=== PATIENT | female | born 1955 | race Caucasian/White ===

== ENCOUNTER 2020-11-14 01:17 | Day surgery (SDC) | payer OTHER, SELFPAY ==
[2020-10-31 13:05] VITALS: BMI 29.2
[2020-11-14 06:48] VITALS: BP 141/73; PULSE 86; RESP 16; TEMP 35.9; O2SAT 100
[2020-11-14] MEDS: LACTATED RINGERS 1,000 ML 150 ML IV CONT (06:57)
--- NOTE | 2020-11-14 07:29 | P.PNAN_ITS ---
Anes - Initial Pre Proc Eval Procedure: Operation Date: 11/14/20 08:15 Proposed Procedures p Esophagogastroduodenoscopy & Screening Colonoscopy - Scott Torrez MD Date/Time: 11/14/20 07:29 Surgeon: Scott Lynch MD Pre Op Diagnosis: GERD, hx of colon polyps Patient Data Age: 65 Gender: F Height: 1.57 m Weight: 72.1 kg Last Vital Signs Temp 96.7 F L 11/14/20 06:48 Pulse 86 11/14/20 06:48 Resp 16 11/14/20 06:48 BP 141/73 H 11/14/20 06:48 Pulse Ox 100 11/14/20 06:48 Allergies Allergy/AdvReac Type Severity Reaction Status Date / Time No Known Allergies Allergy Verified 11/14/20 06:45 Home Medications Medication Instructions Recorded Confirmed Type albuterol sulfate 90 mcg/actuation 1 puff INHALATION Q4H PRN 04/06/20 11/14/20 History aerosol inhaler estradiol 0.1 mg/24 hr semiweekly 1 patch TRANSDERMAL 2XW 04/06/20 11/14/20 History transdermal patch fluticasone 100 mcg-salmeterol 50 1 inh INHALATION Q12H 04/06/20 11/14/20 History mcg/dose blistr powdr for inhalation levocetirizine 5 mg tablet 5 mg PO DAILY 04/06/20 11/14/20 History melatonin 5 mg capsule 5 mg PO DAILY cap 04/06/20 11/14/20 History montelukast 10 mg tablet 10 mg PO DAILY 04/06/20 11/14/20 History olopatadine 0.1 % eye drops 1 drp OPHTHALMIC (EYE) BID 04/06/20 11/14/20 History esomeprazole magnesium 40 mg 40 mg PO DAILY 30 Days #30 cap 10/05/20 11/14/20 Rx capsule,delayed release famotidine 20 mg tablet 20 mg PO DAILY 10/05/20 11/14/20 History Patient hx anesthesia problems: none Family hx anesthesia problems: none PMFSH Past Medical History Medical History Abdominal pain Bloating Screen for colon cancer Social History Social History (Updated 10/05/20 @ 09:58 by BARAK Washington Smoking status: Never smoker Alcohol intake: never Substance use: never Substance use type: does not use Living arrangements: with family Gender identity (if verbalized by the patient): Female Anes - Eval Final PreProcedure Day of Procedure 11/14/20 07:29 Patient weight: overweight Heart: regular rate and rhythm Lungs: clear to auscultation Airway: Mallampati scale class II Neurological: alert and oriented Last oral intake: >/= 8 hours ASA classification: II Emergent: no Anesthetic plan: proceed Anesthesia type and monitoring: general GIVS and standard monitoring Informed Consent: The patient's anesthetic plan and its attendant risks and benefits were discussed with the patient/family/POA. Questions were solicited and answers provided to the satisfaction of the patient/family/POA.
--- NOTE | 2020-11-14 08:27 | PM.HPGS ---
History of Present Illness History of Present Illness Consent: Risks, benefits, and alternatives have been discussed and questions answered. Patient agrees to proceed with procedure. Chief complaint: GERD, hx of colon polyps Narrative: Nicole Ramirez is a 65 year old female with epigastric pain that is resolved after using nexium but now experiencing belching and bloating after eating. Also she is due to have another colonoscopy Review of Systems Constitutional: Constitutional: Denies headache(s) and Denies weakness Eyes: Eyes: Denies blurry vision ENT: Reports Normal hearing present, Denies headache(s) and Denies neck pain Cardiovascular: Cardiovascular: Denies chest pain and Denies dyspnea Respiratory: Respiratory: Denies dyspnea Gastrointestinal: Gastrointestinal: Reports no additional gastrointestinal complaints Genitourinary: Genitourinary: Denies dysuria Musculoskeletal: Musculoskeletal: Denies neck pain Integumentary/Breasts: Skin/Breast: Denies dry skin Neurologic: Reports Normal hearing present, Denies headache(s) and Denies weakness Psychiatric: Psychiatric: Denies anxiety Endocrine: Endocrine: Denies change in body appearance Hematologic/Lymphatic: Hematologic/Lymphatic: Denies easy bleeding Allergic/Immunologic: Allergic/Immunologic: Denies urticaria [facility] Past Medical History Medical History Abdominal pain Bloating Screen for colon cancer Social History Social History (Updated 10/05/20 @ 09:58 by Evi Waggoner CMA) Smoking status: Never smoker Alcohol intake: never Substance use: never Substance use type: does not use Living arrangements: with family Gender identity (if verbalized by the patient): Female Meds Home Medications and Allergies Home Medications Medication Instructions Recorded Confirmed Type albuterol sulfate 90 mcg/actuation 1 puff INHALATION Q4H PRN 04/06/20 11/14/20 History aerosol inhaler estradiol 0.1 mg/24 hr semiweekly 1 patch TRANSDERMAL 2XW 04/06/20 11/14/20 History transdermal patch fluticasone 100 mcg-salmeterol 50 1 inh INHALATION Q12H 04/06/20 11/14/20 History mcg/dose blistr powdr for inhalation levocetirizine 5 mg tablet 5 mg PO DAILY 04/06/20 11/14/20 History melatonin 5 mg capsule 5 mg PO DAILY cap 04/06/20 11/14/20 History montelukast 10 mg tablet 10 mg PO DAILY 04/06/20 11/14/20 History olopatadine 0.1 % eye drops 1 drp OPHTHALMIC (EYE) BID 04/06/20 11/14/20 History esomeprazole magnesium 40 mg 40 mg PO DAILY 30 Days #30 cap 10/05/20 11/14/20 Rx capsule,delayed release famotidine 20 mg tablet 20 mg PO DAILY 10/05/20 11/14/20 History Allergies Allergy/AdvReac Type Severity Reaction Status Date / Time No Known Allergies Allergy Verified 11/14/20 06:45 Vital Signs Vital Signs - 24 hr 11/14/20 06:48 Temperature 96.7 F L Pulse Rate 86 Respiratory Rate 16 Blood Pressure 141/73 H Pulse Oximetry 100 Exam Const: General: comfortable and no acute distress HENMT: General nose exam: Normal nares present Eyes: General: appearance normal, both eyes and all related structures Neck: Neck: no JVD Resp: Auscultation: clear to auscultation bilaterally Cardio: Rate: regular rate Rhythm: regular rhythm GI: Inspection: non-distended GI Palp: Yes Soft to palpation Skin: General skin exam: normal color Neuro: General: gait normal Speech: normal speech Extrem: General: normal to inspection Psych: Mental Status: mental status grossly normal Assessment and Plan Assessment and plan (1) Bloating: Code(s): R14.0 - Abdominal distension (gaseous) Status: Acute Assessment and Plan: egd with bx (2) Screen for colon cancer: Code(s): Z12.11 - Encounter for screening for malignant neoplasm of colon Status: Acute Assessment and Plan: colonoscopy
[2020-11-14] MEDS: BENZOCAINE (*SP) 60 ML SPRAY CAN (HURRICAINE) 1 SPRAY MUCOUS MEM (08:31)
[2020-11-14 08:55] VITALS: BP 116/69; PULSE 78; RESP 16; O2SAT 98
[2020-11-14 09:05] VITALS: BP 120/70; PULSE 77; RESP 16; O2SAT 98
[2020-11-14 09:15] VITALS: BP 109/67; PULSE 74; RESP 20; O2SAT 100
== END 2020-11-14 09:21 | disposition home or self-care (01) ==
PROVIDERS: Visit Provider Internal Medicine Gastroenterology
PROC: 0DJ08ZZ Inspection of Upper Intestinal Tract, Via Natural or Artificial Opening Endoscopic (ICD-10-PCS; CPT 43235; principal; 2020-11-14 08:15)
DX: Z12.11 Encounter for screening for malignant neoplasm of colon (principal); D12.3 Benign neoplasm of transverse colon; K57.30 Diverticulosis of large intestine without perforation or abscess without bleeding; K64.8 Other hemorrhoids; K21.9 Gastro-esophageal reflux disease without esophagitis; R10.13 Epigastric pain; R14.0 Abdominal distension (gaseous); Z79.51 Long term (current) use of inhaled steroids
CPT/HCPCS: 45385; 43239; 88305; J2704; J7120

== ENCOUNTER 2022-04-05 08:29 | Outpatient (CLI) | payer OTHER, SELFPAY ==
--- NOTE | ~2022-04-05 | US_ITS ---
US abdomen limited DATE: 04/05/2022 11:39 INDICATION: Epigastric abdominal pain, abdominal distention TECHNIQUE: Real-time imaging of right upper quadrant, Doppler analysis COMPARISON: None FINDINGS: Approximately 4 mm gallbladder wall polyp. No gallstones or gallbladder wall thickening. Ne gative sonographic Howell's sign. The common bile duct measures 4 mm, normal. No hepatic or pancreatic space-occupying mass lesion. Normal hepatopedal portal venous flow direction . IMPRESSION: 4 mm gallbladder polyp; no gallstones. Negative sonographic Howell's sign Reviewed, dictated and finalized at [facility] Reviewed, dictated and finalized at [facility]. [employer] CLINICAL IMPRESSION: 4 mm gallbladder polyp; no gallstones. Negative sonographic Howell' s sign
--- NOTE | ~2022-04-05 | NM_ITS ---
EXAMINATION: NM hepatobiliary wo pharm DATE: 04/05/2022 14:19 WE[employer] DESIGN INTERN INDICATION: Postprandial bloating with gas COMPARISON: None. TECHNIQUE: 4.9 mCi Tc-99m mebrofenin (Choletec) was administered intravenously. Scintigraphic images of the abdomen were obtained for one hour. At the 1 hour time point, the patient drank 8 oz Ensure, and imaging was continued for 60 minutes. Gallbladder ejection fraction was calculated by the technol ogist. FINDINGS: There is normal clearance of radiotracer from the blood pool. There is homogeneous tracer u ptake by the liver. Activity progresses to the bowel and gallbladder. The gallbladder ejection fract ion is 55%. Note that with this technique, normal GBEF >= 33%. IMPRESSION: 1. Normal hepatobiliary scan. 2. Reviewed, dictated and finalized at [facility] DESIGN INTERN
== END 2022-04-05 08:30 | disposition home or self-care (01) ==
PROVIDERS: PCP Internal Medicine; Visit Provider Nurse Practitioner Family
DX: R14.0 Abdominal distension (gaseous) (principal); R14.2 Eructation; K82.4 Cholesterolosis of gallbladder
CPT/HCPCS: 76705; 78226; A9537